=== PATIENT | female | born 1990 | race African-American/Black ===

== ENCOUNTER 2016-08-10 10:39 | Emergency (ER) | payer OTHER ==
[~2016-08-10 10:39] MED LIST: CIPRO XR 500 M500 MG PO; FLAGYL PO; LOMOTIL WHITE2.5 M1 PO; MIRALAX PO; NO MEDICATIONS; REGLAN10 MG PO
== END 2016-08-10 11:48 | disposition home or self-care (01) ==
LOC: SED 10:39
DX: J02.9 Acute pharyngitis, unspecified (principal); Z88.0 Allergy status to penicillin
CPT/HCPCS: 87651; 99283